=== PATIENT | male | born 1990 | race African-American/Black ===

== ENCOUNTER 2018-04-07 08:01 | Emergency (ER) | payer MEDICAID ==
[~2018-04-07] VITALS: Ht 170.2 cm; Wt 65.0 kg
[2018-04-07] MEDS ORDERED: METOCLOPRAMIDE HCL 10MG/2ML VIAL IV ONE (09:00)
[2018-04-07] MEDS ORDERED: SODIUM CHLORIDE 0.9% 1,000 ML IV ONE ×2 (09:00→09:31)
[2018-04-07] MEDS ORDERED: DIPHENHYDRAMINE 50MG/ML VIAL IV ONE (09:00)
[2018-04-07] MEDS ORDERED: KETOROLAC 30MG/ML VIAL IV STA (09:31)
[2018-04-07] MEDS ORDERED: LEVETIRACETAM 500MG PREMIX 100 ML IV ONE (09:45)
[2018-04-07 10:40] LABS: EOSINOPHILS % 4.4 % (0.0-5.0); HEMATOCRIT. 36.2 % (42.0-52.0); HEMOGLOBIN. 11.8 g/dL (14.0-18.0); LYMPHOCYTES % 49.6 % (20.0-50.0); MEAN CORPUSCULAR VOLUME 82.8 fL (80.0-94.0); MEAN PLATELET VOLUME 8.6 fl (7.4-10.4); MONOCYTES % 9.5 % (2.0-8.0); NEUTROPHILS % 35.5 % (40.0-76.0); PLATELET 259 x1000/uL (130-400); RED BLOOD CELL COUNT 4.37 mill/uL (4.7-6.1); RED CELL DISTRIBUTION WIDTH 15.7 % (11.6-14.6)
[2018-04-07 10:44] LABS: CHLORIDE 108 mEq/L (98-107)
[2018-04-07 14:58] VITALS: BP 112/61
== END 2018-04-07 16:05 | disposition home or self-care (01) ==
LOC: ER 08:10
DX: G40.909 Epilepsy, unspecified, not intractable, without status epilepticus (principal); J45.909 Unspecified asthma, uncomplicated; R51 Headache
CPT/HCPCS: 36415; 80053; 85025; 96365; 96375; 99285; J1200; J1885; J1953; J2765; J7030